=== PATIENT | female | born 1945 | race Two or more races ===

== ENCOUNTER 2020-07-02 08:26 | Emergency (ER) | payer OTHER ==
[~2020-07-02] VITALS: Ht 154.9 cm; Wt 74.8 kg
[2020-07-02] MEDS ORDERED: HYDROCHLOROTHIA25 MG (08:33)
[2020-07-02] MEDS ORDERED: ADULT ASPIRIN81 MG (08:34)
[2020-07-02] MEDS ORDERED: METOPROLOL SUCC25 MG (08:34)
[2020-07-02] MEDS ORDERED: IRBESARTAN300 MG (08:34)
== END 2020-07-02 14:19 | disposition home or self-care (01) ==
LOC: ER 08:26
DX: N95.0 Postmenopausal bleeding (principal); Z03.818 Encounter for observation for suspected exposure to other biological agents ruled out

== ENCOUNTER 2020-09-16 13:14 | Emergency (ER) | payer OTHER ==
[~2020-09-16] VITALS: Ht 154.9 cm; Wt 71.2 kg
[~2020-09-16 13:14] MED LIST: ADULT ASPIRIN81 MG; HYDROCHLOROTHIA25 MG; IRBESARTAN300 MG; METOPROLOL SUCC25 MG
[2020-09-16] MEDS ORDERED: SIMVASTATIN5 MG (13:33)
[2020-09-16] MEDS ORDERED: METFORMIN HCL500 M3 (13:33)
[2020-09-16] MEDS ORDERED: COZAAR100 MG (13:33)
== END 2020-09-16 18:14 | disposition home or self-care (01) ==
LOC: ER 13:14
DX: N93.8 Other specified abnormal uterine and vaginal bleeding (principal); C54.1 Malignant neoplasm of endometrium